=== PATIENT | male | born 1955 | race Caucasian/White ===

== ENCOUNTER 2017-02-17 22:35 | Emergency (ER) | payer MEDICARE ==
[~2017-02-17] VITALS: Ht 175.3 cm; Wt 90.0 kg
[~2017-02-17 22:35] MED LIST: ALPR1TAB6 PO; BUPR1FIL5 PO; CLON1TAB PO; GABA800T2 PO
[2017-02-17 22:43] VITALS: BP 122/75
[2017-02-18] MEDS ORDERED: HYDROmorphone 1 MG/ML, 1ML ONE (00:29)
[2017-02-18] MEDS ORDERED: HYDROmorphone 1 MG/ML, 1ML IM ONE (00:30)
== END 2017-02-18 00:49 | disposition home or self-care (01) ==
LOC: ED 23:59
DX: S39.012A Strain of muscle, fascia and tendon of lower back, initial encounter (principal); M17.31 Unilateral post-traumatic osteoarthritis, right knee; W19.XXXA Unspecified fall, initial encounter; Y93.89 Activity, other specified; Y92.89 Other specified places as the place of occurrence of the external cause; Y99.8 Other external cause status
CPT/HCPCS: 72110; 73564; 96372; 99284; J1170

== ENCOUNTER 2018-05-22 00:05 | Emergency (ER) | payer MEDICARE ==
[~2018-05-22] VITALS: Ht 177.8 cm; Wt 95.0 kg
[2018-05-22] MEDS ORDERED: ZIPRASIDONE 20 MG INJ IM ONE ×2 (01:00→01:13)
[2018-05-22] MEDS ORDERED: KETOROLAC 30 MG/1 ML IM ONE (01:00)
[2018-05-22] MEDS ORDERED: KETOROLAC 30 MG/1 ML ONE (01:12)
[2018-05-22 04:27] VITALS: BP 124/51
== END 2018-05-22 04:00 | disposition home or self-care (01) ==
LOC: ED 03:55
DX: F45.8 Other somatoform disorders (principal); M79.605 Pain in left leg; Z87.891 Personal history of nicotine dependence
CPT/HCPCS: 96372; 99284; J1885; J3486

== ENCOUNTER 2018-07-10 03:18 | Emergency (ER) | payer BC, MEDICARE ==
[~2018-07-10] VITALS: Ht 175.3 cm; Wt 86.0 kg
[2018-07-10] MEDS ORDERED: KETOROLAC 30 MG/1 ML IM ONE (03:30)
[2018-07-10] MEDS ORDERED: HYDROcodone/APAP 5/325 TABLET PO ONE (03:30)
[2018-07-10] MEDS ORDERED: ZIPRASIDONE 20 MG INJ IM ONE ×2 (03:30→03:34)
[2018-07-10] MEDS ORDERED: KETOROLAC 30 MG/1 ML ONE (03:34)
[2018-07-10] MEDS ORDERED: HYDROcodone/APAP 5/325 TABLET ONE (03:34)
[2018-07-10 04:00] VITALS: BP 102/75
== END 2018-07-10 04:34 | disposition home or self-care (01) ==
LOC: ED 04:06
DX: G54.6 Phantom limb syndrome with pain (principal); M19.90 Unspecified osteoarthritis, unspecified site; F41.1 Generalized anxiety disorder; Z87.891 Personal history of nicotine dependence; Z89.512 Acquired absence of left leg below knee
CPT/HCPCS: 96372; 99284; J1885; J3486